=== PATIENT | female | born 1955 | race Caucasian/White ===

== ENCOUNTER 2020-03-19 07:25 | Emergency (ER) | payer OTHER ==
[~2020-03-19] VITALS: Ht 167.6 cm; Wt 72.6 kg
[2020-03-19 07:31] VITALS: BP 111/59
[2020-03-19] MEDS ORDERED: KETOROLAC 60 MG/2 ML VIAL IM ONE (07:40)
[2020-03-19 08:25] VITALS: BP 111/59
== END 2020-03-19 08:29 | disposition home or self-care (01) ==
LOC: MED 07:25
DX: M79.10 Myalgia, unspecified site (principal); F41.9 Anxiety disorder, unspecified; F32.9 Major depressive disorder, single episode, unspecified; F20.9 Schizophrenia, unspecified; F17.210 Nicotine dependence, cigarettes, uncomplicated; Z88.8 Allergy status to other drugs, medicaments and biological substances
CPT/HCPCS: 96372; 99283; J1885